=== PATIENT | male | born 1970 | race Hispanic/Latino ===

== ENCOUNTER 2018-06-18 12:35 | Emergency (ER) | payer OTHER ==
[~2018-06-18] VITALS: Ht 167.6 cm; Wt 91.2 kg
[~2018-06-18 12:35] MED LIST: BROM-PSE-DM CO473 ML PO; LEVOFLOXACIN500 MG PO; LISINOPRIL-HCT1 EAC1 PO; OMEPRAZOLE40 MG PO; PREDNISONE20 MG PO; PROAIR HFA INH8.5 GM; SYMBICORT 80-10.2 GM INH; TAMIFLU75 MG PO; VENTOLIN HFA18 GM PO; XARELTO10 MG
--- NOTE | 2018-06-18 14:36 | Diagnostic Imaging Report ---
EXAMINATION: CHEST 2 VIEWS INDICATION: \S\COUGH/ \[id number] \S\[id number] COMPARISON: 09/30/2017 FINDINGS: PA and lateral views TUBES and LINES: None. LUNGS: Lungs are well inflated. Lungs are clear. There is no evidence of pneumonia or pulmonary edema. PLEURA: No pleural effusion or pneumothorax. HEART AND MEDIASTINUM: The cardiomediastinal silhouette is unremarkable. BONES AND SOFT TISSUES: No acute osseous lesion. Soft tissues are unremarkable. UPPER ABDOMEN: No free air under the diaphragm. IMPRESSION: No acute thoracic abnormality. Signed by: Dr. Crow Veras MD on 06/18/2018 2:33 PM
== END 2018-06-18 15:00 | disposition home or self-care (01) ==
LOC: ER 12:35
DX: R05 Cough (principal); J20.9 Acute bronchitis, unspecified
CPT/HCPCS: 71046; 99283